=== PATIENT | male | born 1990 | race Caucasian/White ===

== ENCOUNTER 2024-05-25 17:19 | Inpatient (IN) | payer SELFPAY ==
[~2024-05-25] VITALS: Ht 170.2 cm; Wt 95.3 kg
[2024-05-25 18:16] LABS: BASOPHILS # (AUTO) 0.1 (0.0-0.1); BASOPHILS % 0.3 % (0.0-1.0); EOSINOPHILS # (AUTO) 0.1 (0.0-0.4); EOSINOPHILS % 0.2 % (0.0-6.0); HEMATOCRIT 33.2 % (38.2-49.6); HEMOGLOBIN 11.1 g/dL (14.0-18.0); LYMPHOCYTES # (AUTO) 1.8 (1.0-3.2); LYMPHOCYTES % 7.5 % (18.0-39.1); MEAN CORPUSCULAR HEMOGLOBIN 30.8 pg (28-32); MEAN CORPUSCULAR HGB CONC 33.4 g/dL (31-35); MEAN CORPUSCULAR VOLUME 92.2 fL (81-99); MONOCYTES % 8.4 % (4.4-11.3); NEUTROPHILS # (AUTO) 19.4 (2.1-6.9); PLATELET COUNT 246 x10e3/uL (140-360)
[2024-05-25 18:17] LABS: INR 1.06; PROTHROMBIN TIME 14.3 seconds (11.9-14.5)
[2024-05-25 18:18] LABS: PARTIAL THROMBOPLASTIN TIME 45.1 seconds (23.8-35.5)
[2024-05-25 18:27] LABS: ALANINE AMINOTRANSFERASE 34 IU/L (0-55); ALBUMIN 2.7 g/dL (3.5-5.0); ALBUMIN/GLOBULIN RATIO 0.7 (0.8-2.0); ALKALINE PHOSPHATASE 75 IU/L (40-150); ANION GAP 12.1 mmol/L (8-16); BILIRUBIN,TOTAL 0.7 mg/dL (0.2-1.2); BLOOD UREA NITROGEN 10 mg/dL (7-26); BUN/CREATININE RATIO 11 (6-25); CALCIUM 8.9 mg/dL (8.4-10.2); CARBON DIOXIDE 22 mmol/L (22-29); CHLORIDE 103 mmol/L (98-107); CREATINE KINASE 36 IU/L (30-200); CREATININE, SERUM 0.88 mg/dL (0.72-1.25); EST GLOMERULAR FILTRATION RATE 115 ML/MIN (>=60); GLUCOSE 95 mg/dL (74-118); SODIUM 134 mmol/L (136-145); TOTAL PROTEIN 6.7 g/dL (6.5-8.1)
[2024-05-25 18:28] LABS: POTASSIUM 3.1 mmol/L (3.5-5.1)
[2024-05-25 18:37] LABS: TROPONIN I < 0.001 ng/mL (0-0.300)
[2024-05-25] MEDS: SODIUM CHLORIDE 0.9% 1000ML 1,000 ML IV SCH ×2 (18:56→19:45)
[2024-05-25] MEDS: Vancomycin IV 1 GM in SODIUM CHLORIDE 0.9% 250ML 250 ML IV SCH (19:00)
[2024-05-25] MEDS: ACETAMINOPHEN 325 MG TAB PO ONE (19:03)
[2024-05-25] MEDS ORDERED: Morphine 4mg INJECTION 4 MG/ML INJ IV PRN (19:45)
[2024-05-25] MEDS ORDERED: ONDANSETRON HCL INJ 2MG/ML 2ML 2 MG/ML VIAL IV PRN (19:45)
[2024-05-25 20:20] VITALS: PULSE 104; RESP 20; O2SAT 99
[2024-05-25 21:01] LABS: BILIRUBIN,URINE NEGATIVE (NEGATIVE); CLARITY,URINE SL CLOUDY (CLEAR); COLOR,URINE STRAW (YELLOW); GLUCOSE, URINE NEGATIVE (NEGATIVE); KETONES,URINE NEGATIVE (NEGATIVE); LEUKOCYTE ESTERASE ,URINE TRACE (NEGATIVE); NITRITE,URINE NEGATIVE (NEGATIVE); PH,URINE 6 (5 - 7); PROTEIN,URINE DIPSTICK 2+ (NEGATIVE); URINE UROBILINOGEN >=8 mg/dL (0.2 - 1)
[2024-05-25 21:11] LABS: AMORPHOUS SEDIMENT,URINE MODERATE (FEW); BACTERIA,URINE FEW /HPF; RBC,URINE 0-5 /HPF (0-5); WBC,URINE (MAN) 0-5 /HPF (0-5)
[2024-05-26] MEDS ORDERED: HYDRALAZINE HCL 20 MG/ML VIAL IV PRN ×2 (01:15→09:15)
[2024-05-26] MEDS ORDERED: POLYETHYLENE GLYCOL 3350 17 GM PACK PO PRN ×2 (01:15→09:15)
[2024-05-26 06:10] LABS: BASOPHILS # (AUTO) 0.1 (0.0-0.1); BASOPHILS % 0.4 % (0.0-1.0); EOSINOPHILS # (AUTO) 0.3 (0.0-0.4); EOSINOPHILS % 1.3 % (0.0-6.0); HEMATOCRIT 34.3 % (38.2-49.6); HEMOGLOBIN 11.4 g/dL (14.0-18.0); LYMPHOCYTES # (AUTO) 1.8 (1.0-3.2); LYMPHOCYTES % 7.8 % (18.0-39.1); MEAN CORPUSCULAR HEMOGLOBIN 30.7 pg (28-32); MEAN CORPUSCULAR HGB CONC 33.2 g/dL (31-35); MEAN CORPUSCULAR VOLUME 92.5 fL (81-99); MONOCYTES # (AUTO) 1.9 (0.2-0.8); MONOCYTES % 8.3 % (4.4-11.3); NEUTROPHILS # (AUTO) 18.5 (2.1-6.9); NEUTROPHILS % 81.6 % (38.7-80.0); PLATELET COUNT 265 x10e3/uL (140-360); RED BLOOD COUNT 3.71 x10e6/uL (4.3-5.7); RED CELL DISTRIBUTION WIDTH 13.2 % (11.7-14.4)
[2024-05-26 06:32] LABS: ALBUMIN 2.6 g/dL (3.5-5.0); ALBUMIN/GLOBULIN RATIO 0.6 (0.8-2.0); ANION GAP 11.4 mmol/L (8-16); BILIRUBIN,TOTAL 0.9 mg/dL (0.2-1.2); CREATININE, SERUM 0.79 mg/dL (0.72-1.25); TOTAL PROTEIN 6.7 g/dL (6.5-8.1)
[2024-05-26 06:34] LABS: POTASSIUM 3.4 mmol/L (3.5-5.1)
[2024-05-26 06:42] LABS: CHOL/HDL RATIO 4.5 (3.9-4.7); PHOSPHORUS 2.7 MG/DL (2.3-4.7)
[2024-05-26 07:42] VITALS: PULSE 85; RESP 28; O2SAT 100
[2024-05-26] MEDS: ACETAMINOPHEN 325 MG TAB PO PRN (08:18)
[2024-05-26] MEDS: DOCUSATE SODIUM 100 MG CAP PO SCH (09:00)
[2024-05-26] MEDS ORDERED: ACETAMINOPHEN 325 MG TAB PO PRN (09:15)
[2024-05-26 10:08] LABS: FREE T4 (FREE THYROXINE) 0.95 ng/dL (0.8-1.8)
[2024-05-26 10:49] VITALS: PULSE 78; RESP 18; O2SAT 100
[2024-05-26 11:31] LABS: THYROID STIMULATING HORMONE 3.38 uIU/mL (0.350-4.940)
[2024-05-26] MEDS ORDERED: MUPIROCIN 2% OINT 22 GM TUBE TOP SCH (17:00)
[2024-05-26] MEDS: COLLAGENASE 5 GM TUBE TP SCH (17:20)
[2024-05-26] MEDS: MUPIROCIN 2% OINT 22 GM TUBE TOP SCH (17:21)
[2024-05-26] MEDS: ENOXAPARIN SOD INJ 40 MG/0.4 ML SYR SC SCH (17:21)
[2024-05-26 17:36] VITALS: PULSE 82; RESP 16; TEMP 98.5
[2024-05-26 18:17] VITALS: BP 132/95; PULSE 86; RESP 18; TEMP 98.2; O2SAT 99
[2024-05-26 20:00] VITALS: BP 132/95; PULSE 86; RESP 18; TEMP 98.2; O2SAT 99
[2024-05-26] MEDS: Vancomycin IV 1 GM in SODIUM CHLORIDE 0.9% 250ML 250 ML IV SCH (20:16)
[2024-05-26 21:20] VITALS: BP 123/81; PULSE 84; RESP 18; TEMP 98.3; O2SAT 100
[2024-05-27] VITALS (7 sets, daily range): BP systolic 110–120; BP diastolic 71–86; PULSE 74–91; RESP 17–18; TEMP 98.2–98.9; O2SAT 96–100
[2024-05-27 07:38] LABS: BASOPHILS % 0.3 % (0.0-1.0); EOSINOPHILS # (AUTO) 0.4 (0.0-0.4); EOSINOPHILS % 2.7 % (0.0-6.0); HEMATOCRIT 31.9 % (38.2-49.6); HEMOGLOBIN 10.6 g/dL (14.0-18.0); LYMPHOCYTES # (AUTO) 1.9 (1.0-3.2); LYMPHOCYTES % 12.3 % (18.0-39.1); MEAN CORPUSCULAR HEMOGLOBIN 30.4 pg (28-32); MEAN CORPUSCULAR HGB CONC 33.2 g/dL (31-35); MEAN CORPUSCULAR VOLUME 91.4 fL (81-99); MONOCYTES # (AUTO) 1.3 (0.2-0.8); MONOCYTES % 8.9 % (4.4-11.3); NEUTROPHILS # (AUTO) 11.3 (2.1-6.9); NEUTROPHILS % 75.1 % (38.7-80.0); PLATELET COUNT 305 x10e3/uL (140-360); RED BLOOD COUNT 3.49 x10e6/uL (4.3-5.7); RED CELL DISTRIBUTION WIDTH 13.4 % (11.7-14.4); WHITE BLOOD COUNT 15.08 x10e3/uL (4.8-10.8)
[2024-05-27 08:01] LABS: ALBUMIN 2.1 g/dL (3.5-5.0); ALBUMIN/GLOBULIN RATIO 0.6 (0.8-2.0); ANION GAP 12.9 mmol/L (8-16); BILIRUBIN,TOTAL 0.5 mg/dL (0.2-1.2); CALCIUM 8.2 mg/dL (8.4-10.2); CREATININE, SERUM 0.76 mg/dL (0.72-1.25); TOTAL PROTEIN 5.8 g/dL (6.5-8.1)
[2024-05-27 08:06] LABS: POTASSIUM 2.9 mmol/L (3.5-5.1)
[2024-05-27 08:20] LABS: FERRITIN 806.28 ng/mL (21.81-274.66)
[2024-05-27] MEDS: POTASSIUM CHLORIDE 20 MEQ TAB CR PO STA (08:40)
[2024-05-27] MEDS: POTASSIUM CHLORIDE 20 MEQ TAB CR PO ONE (10:33)
[2024-05-27] MEDS: CYANOCOBALAMIN INJ 1,000 MCG/ML VIAL IM ONE (17:09)
[2024-05-28] VITALS (7 sets, daily range): BP systolic 115–132; BP diastolic 60–92; PULSE 72–84; RESP 19–20; TEMP 98.1–99.5; O2SAT 98–100
[2024-05-28 05:45] LABS: BASOPHILS % 0.2 % (0.0-1.0); EOSINOPHILS # (AUTO) 0.4 (0.0-0.4); EOSINOPHILS % 3.6 % (0.0-6.0); HEMATOCRIT 33.5 % (38.2-49.6); HEMOGLOBIN 10.6 g/dL (14.0-18.0); LYMPHOCYTES # (AUTO) 2.2 (1.0-3.2); LYMPHOCYTES % 18.2 % (18.0-39.1); MEAN CORPUSCULAR HEMOGLOBIN 30.1 pg (28-32); MEAN CORPUSCULAR HGB CONC 31.6 g/dL (31-35); MEAN CORPUSCULAR VOLUME 95.2 fL (81-99); MONOCYTES # (AUTO) 1.1 (0.2-0.8); MONOCYTES % 9.2 % (4.4-11.3); NEUTROPHILS # (AUTO) 8.3 (2.1-6.9); NEUTROPHILS % 67.4 % (38.7-80.0); PLATELET COUNT 353 x10e3/uL (140-360); RED BLOOD COUNT 3.52 x10e6/uL (4.3-5.7); RED CELL DISTRIBUTION WIDTH 13.8 % (11.7-14.4); WHITE BLOOD COUNT 12.24 x10e3/uL (4.8-10.8)
[2024-05-28 06:08] LABS: ANION GAP 11.5 mmol/L (8-16); CALCIUM 8.2 mg/dL (8.4-10.2); CREATININE, SERUM 0.78 mg/dL (0.72-1.25); POTASSIUM 3.5 mmol/L (3.5-5.1)
[2024-05-28] MEDS: CYANOCOBALAMIN INJ 1,000 MCG/ML VIAL IM SCH (08:26)
[2024-05-28] MEDS: POTASSIUM CHLORIDE 10MEQ EA PO ONE (09:23)
[2024-05-28 10:29] LABS: BASOPHILS % (MANUAL) 2 % (0-1.5); EOSINOPHILS % (MANUAL) 2 % (0-7); LYMPHOCYTES % (MANUAL) 29 % (19-48); MONOCYTES % (MANUAL) 9 % (3.4-9.0); NEUTROPHILS % (MANUAL) 58 % (40-74); PLATELET ESTIMATE ADEQUATE; PLATELET MORPHOLOGY COMMENT NORMAL; RBC MORPHOLOGY COMMENT NORMAL
[2024-05-29] VITALS (8 sets, daily range): BP systolic 113–138; BP diastolic 84–94; PULSE 61–80; RESP 18–20; TEMP 97.8–99.2; O2SAT 98–100
[2024-05-29 06:04] LABS: BASOPHILS # (AUTO) 0.1 (0.0-0.1); BASOPHILS % 0.4 % (0.0-1.0); EOSINOPHILS # (AUTO) 0.4 (0.0-0.4); EOSINOPHILS % 3.6 % (0.0-6.0); HEMOGLOBIN 10.2 g/dL (14.0-18.0); LYMPHOCYTES # (AUTO) 2.6 (1.0-3.2); LYMPHOCYTES % 21.3 % (18.0-39.1); MEAN CORPUSCULAR HEMOGLOBIN 30.3 pg (28-32); MEAN CORPUSCULAR HGB CONC 31.9 g/dL (31-35); MONOCYTES # (AUTO) 1.1 (0.2-0.8); MONOCYTES % 9.4 % (4.4-11.3); NEUTROPHILS # (AUTO) 7.7 (2.1-6.9); NEUTROPHILS % 63.2 % (38.7-80.0); PLATELET COUNT 387 x10e3/uL (140-360); RED BLOOD COUNT 3.37 x10e6/uL (4.3-5.7); RED CELL DISTRIBUTION WIDTH 13.6 % (11.7-14.4); WHITE BLOOD COUNT 12.19 x10e3/uL (4.8-10.8)
[2024-05-29 06:24] LABS: ANION GAP 11.8 mmol/L (8-16); CREATININE, SERUM 0.91 mg/dL (0.72-1.25); POTASSIUM 3.8 mmol/L (3.5-5.1)
[2024-05-29 09:12] LABS: BASOPHILS % (MANUAL) 1 % (0-1.5); EOSINOPHILS % (MANUAL) 4 % (0-7); LYMPHOCYTES % (MANUAL) 29 % (19-48); MONOCYTES % (MANUAL) 4 % (3.4-9.0); NEUTROPHILS % (MANUAL) 62 % (40-74)
[2024-05-29 09:13] LABS: PLATELET ESTIMATE ADEQUATE; PLATELET MORPHOLOGY COMMENT NORMAL; RBC MORPHOLOGY COMMENT NORMAL
[2024-05-30] VITALS: BP 146/90; PULSE 73; RESP 18; TEMP 98.2; O2SAT 96
[2024-05-30 04:00] VITALS: BP 135/87; PULSE 79; RESP 20; TEMP 97.8; O2SAT 98
[2024-05-30 05:59] LABS: BASOPHILS % 0.3 % (0.0-1.0); EOSINOPHILS # (AUTO) 0.4 (0.0-0.4); EOSINOPHILS % 3.3 % (0.0-6.0); HEMATOCRIT 33.2 % (38.2-49.6); HEMOGLOBIN 10.4 g/dL (14.0-18.0); LYMPHOCYTES % 17.7 % (18.0-39.1); MEAN CORPUSCULAR HEMOGLOBIN 30.1 pg (28-32); MEAN CORPUSCULAR HGB CONC 31.3 g/dL (31-35); MEAN CORPUSCULAR VOLUME 96.2 fL (81-99); MONOCYTES # (AUTO) 0.9 (0.2-0.8); MONOCYTES % 8.3 % (4.4-11.3); NEUTROPHILS # (AUTO) 7.8 (2.1-6.9); NEUTROPHILS % 68.3 % (38.7-80.0); PLATELET COUNT 403 x10e3/uL (140-360); RED BLOOD COUNT 3.45 x10e6/uL (4.3-5.7); RED CELL DISTRIBUTION WIDTH 13.6 % (11.7-14.4); WHITE BLOOD COUNT 11.36 x10e3/uL (4.8-10.8)
[2024-05-30 06:43] LABS: ANION GAP 9.9 mmol/L (8-16); CREATININE, SERUM 0.85 mg/dL (0.72-1.25); MAGNESIUM 2.1 MG/DL (1.3-2.1); POTASSIUM 3.9 mmol/L (3.5-5.1)
[2024-05-30 07:06] LABS: CALCIUM 8.4 mg/dL (8.4-10.2)
[2024-05-30 08:00] VITALS: BP 125/84; PULSE 62; RESP 17; TEMP 97.7; O2SAT 97
[2024-05-30] MEDS ORDERED: ONDANSETRON HCL 4 MG ORAL DISINTEGRATING TAB PO PRN (08:15)
[2024-05-30] MEDS ORDERED: CEPHALEXIN500 MG PO (11:04)
[2024-05-30] MEDS ORDERED: KETOROLAC TROME10 MG PO (11:04)
[2024-05-30] MEDS ORDERED: MUPIROCIN22 GM TOP (11:04)
[2024-05-30] MEDS ORDERED: DOXYCYCLINE HY100 MG PO (11:04)
[2024-05-30 11:58] VITALS: BP 138/92; PULSE 72; RESP 19; TEMP 97.8; O2SAT 100
== END 2024-05-30 12:32 | disposition home or self-care (01) | DRG 872 ==
LOC: ER 17:57 → ERHOLD 19:33 → MED/SURG2 05-26 18:36
PROVIDERS: ADMIT Internal Medicine; ATTEND Internal Medicine
PROC: 3E0333Z Introduction of Anti-inflammatory into Peripheral Vein, Percutaneous Approach (ICD-10-PCS; principal; 2024-05-25)
DX: A41.9 Sepsis, unspecified organism (principal); L03.115 Cellulitis of right lower limb; E66.9 Obesity, unspecified; Z68.32 Body mass index [BMI] 32.0-32.9, adult; F17.200 Nicotine dependence, unspecified, uncomplicated
CPT/HCPCS: 36415; 71045; 80048; 80053; 80061; 80202; 81001; 82550; 82607; 82728; 82948; 83036; 83540; 83605; 83735; 84100; 84439; 84443; 84466; 84484; 85025; 85610; 85730; 87040; 87086; 93005; 94799; 99252; 99284; J1650; J2543; J3420; J7030; J7050